=== PATIENT | female | born 1985 | race Two or more races ===

== ENCOUNTER 2017-02-22 18:42 | Emergency (ER) | payer MEDICAID ==
[2017-02-22] MEDS ORDERED: IOPAMIDOL 370 (76%) 100 ML VIAL IV ONE (18:43)
[2017-02-22 19:32] LABS: SPECIFIC GRAVITY 1.015 (1.001-1.030); URINE BILIRUBIN NEGATIVE (NEGATIVE); URINE BLOOD 3+ (NEGATIVE); URINE GLUCOSE (UA) NEGATIVE (NEGATIVE); URINE LEUKOCYTE ESTERASE NEGATIVE (NEGATIVE); URINE NITRITE NEGATIVE (NEGATIVE); URINE PROTEIN NEGATIVE (NEGATIVE); URINE UROBILINOGEN NORMAL (0-1 mg/dl)
[2017-02-22 19:35] LABS: HCG,QUALITATIVE URINE NEGATIVE; URINE APPEARANCE CLEAR; URINE COLOR YELLOW
[2017-02-22] MEDS ORDERED: LACTATED RINGERS 1,000 ML ONE (19:41)
[2017-02-22] MEDS ORDERED: ONDANSETRON 4 MG/2ML 2 ML VIAL ONE (19:41)
[2017-02-22 19:50] LABS: URINE BACTERIA RARE; URINE WBC 0-2 /hpf
[2017-02-22 19:53] LABS: ABSOLUTE NEUTROPHIL COUNT 5.6 K/mm3 (1.8-7.7); BASO % 0.4 % (0.2-1.0); EOS # 0.1 (0.0-0.5); EOS % 1.1 % (0.9-2.9); HEMATOCRIT 41.7 % (37.0-47.0); HEMOGLOBIN 13.3 gm/l (12.0-16.0); IMM NEUT% 0.2 % (0-1); LYMPH # 1.7 (1.0-4.8); LYMPH % 20.3 % (15-45); MEAN CELL VOLUME 93.3 fl (81.0-99.0); MEAN CORPUSCULAR HEMOGLOBIN 29.8 pg (27.0-31.0); MEAN CORPUSCULAR HGB CONC 31.9 g/dl (33.0-37.0); MEAN PLATELET VOLUME 10.3 fl (7.4-10.4); MONO # 0.9 (0.0-0.8); MONO % 11.3 % (4-12); NEUT % 66.7 % (43-75); PLATELET COUNT 257 K/mm3 (130-400); RED CELL DISTRIBUTION WIDTH 12.6 % (11.5-14.5)
[2017-02-22 20:06] LABS: ALB/GLOB RATIO 1.3 (>1.0)
[2017-02-22] MEDS ORDERED: ACETAMINOPHEN 500 MG TABLET ONE (20:43)
--- NOTE | 2017-02-23 09:01 | CT ---
Exam Type: ABD/PELVIS W/ CON Date and Time: 02/22/2017 8:22 PM Clinical information: Diffuse abdominal pain for 2 to 3 days with fever, vomiting but no diarrhea. Comparison: None Technique: Contiguous axial 4 mm images were obtained from the lung bases through the pelvis after the uneventful IV administration of 100 cc of [id number]. Sagittal and coronal reformations with high resolution lung algorithm images were also obtained at this time. CT DI: 7.9 DLP 392.9 FINDINGS: Lung base : Calcified granuloma is noted at the right base measuring 5 mm on axial image 11. No other abnormalities identified the lung bases. Visualized heart:There is no pericardial effusion. LIVER: within normal limits. BILE DUCTS: normal caliber. GALLBLADDER: No calcified gallstones. Normal caliber wall. PANCREAS: within normal limits. SPLEEN: within normal limits. ADRENALS: within normal limits. KIDNEYS: There is prominence to the bilateral collecting system with possible suggestion of urothelial enhancement. No straight nephrogram or evidence of obstruction. Correlation with urinalysis for urinary tract infection would be recommended. Stomach and small BOWEL: Normal caliber. Large bowel: Air and stool are noted within the large bowel. Appendix is not visualized though secondary signs of appendicitis are not seen. LYMPH NODES: No enlarged mesenteric lymph nodes. PERITONEUM: no ascites or free air, no fluid collection. VESSELS: within normal limits RETROPERITONEUM: within normal limits. ABDOMINAL WALL: Fat-containing umbilical hernia is present with hernia neck measuring 13 mm. Bladder: Mildly distended. Uterus and adnexa: IUD is present. Multiple follicles are thought to be associated with the adnexa bilaterally. BONES: Partial lumbarization of S1 with pseudoarthrosis of the transverse elements on the right. No lytic or scrotal lesions. Spine maintains anatomic alignment. IMPRESSION: Suggestion of possible urothelial enhancement of the ureters. There is prominence of the bilateral collecting system as well. Relation with urinalysis for urinary tract infection would be recommended. No obstruction is noted. No other abnormalities identified to correspond with the patient's stated symptoms. Close clinical and radiographic follow up are recommend. Incidental findings as above. Preliminary report was provided by [facility] at approximately 240 hours on 02/22/2017.
[2017-02-25 13:33] LABS: CHLAMYDIA BD Negative (Negative); N.GONORRHOEAE BD Negative (Negative); SOURCE Vaginal (())
== END 2017-02-22 22:27 | disposition home or self-care (01) ==
LOC: ED 18:42
DX: R10.31 Right lower quadrant pain (principal); R11.2 Nausea with vomiting, unspecified
CPT/HCPCS: 83690; 87491; 87591; 81025; 85025; 80053; 81001; 74177; 99284 ×2; 96374; 96361 ×2; A9270; J2405; J7120; Q9967